=== PATIENT | male | born 1965 | race Caucasian/White ===

== ENCOUNTER 2018-11-05 12:45 | Emergency (ER) | payer OTHER ==
[~2018-11-05] VITALS: Ht 177.8 cm; Wt 90.7 kg
[2018-11-05 14:07] VITALS: BP 146/89
--- NOTE | 2018-11-06 09:19 | EKG ---
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 : 1965 Requested By: Marisa Valdez Order Number: [id number] MD: Mohsen Olvera Measurements Intervals [place] Rate: 81 P: 60 IN: 167 QRS: 12 QRSD: 89 T: 61 QT: 379 QTc: 440 Interpretive Statements Sinus rhythm normal tracing No previous ECG available for comparison Electronically Signed On 11-06-2018 9:18:45 CDT by Mohsen Olvera [email or web address] ��������������������������������������������� <ELECTRONICALLY SIGNED> ���������������������������������������� By: Mohsen Olvera MD, [facility] ��������������������������������������������� 11/06/18 0918 1334 1334 Mohsen Olvera MD, FACC /EPI
== END 2018-11-05 14:09 | disposition home or self-care (01) ==
LOC: ER 12:45
DX: F41.9 Anxiety disorder, unspecified (principal); F17.210 Nicotine dependence, cigarettes, uncomplicated; I10 Essential (primary) hypertension; Z88.6 Allergy status to analgesic agent; Z88.8 Allergy status to other drugs, medicaments and biological substances